=== PATIENT | female | born 1985 | race African-American/Black ===

== ENCOUNTER 2017-01-10 15:54 | Emergency (ER) | payer OTHER ==
[~2017-01-10] VITALS: Ht 177.8 cm; Wt 99.4 kg
[2017-01-10 16:47] VITALS: BP 112/67
[2017-01-10 17:45] LABS: APPEARANCE,URINE CLEAR (CLEAR); BILIRUBIN,URINE NEGATIVE (NEGATIVE); BLOOD, URINE NEGATIVE (NEGATIVE); COLOR,URINE YELLOW (YELLOW); LEUKOCYTE ESTERASE ,URINE TRACE (NEGATIVE); NITRITE, URINE NEGATIVE (NEGATIVE); PROTEIN,URINE NEGATIVE (NEGATIVE); UGLUCOSE NEGATIVE (NEGATIVE); UROBILINOGEN,URINE 0.2 EU/dL (0.2 - 1)
[2017-01-10 17:53] LABS: BACTERIA,URINE 1-9 (FEW) /HPF (None Seen); RBC,URINE 0-5 (RARE) /HPF (0-5)
[2017-01-10 17:54] LABS: SQUAMOUS EPITHELIAL CELL,UR 4-10 (MOD) /LPF (0-3 (FEW)); URINE AMORPHOUS URATE 1+ /HPF (None Seen)
[2017-01-10 18:21] LABS: EOSINOPHILS # (AUTO) 0.3 K/uL (0-0.4)
[2017-01-10 18:24] LABS: BASOPHILS # (AUTO) 0.2 K/uL (0.00-0.22); BASOPHILS % (AUTO) 3.3 % (0.0-2.0); EOSINOPHILS % (AUTO) 4.2 % (0.0-4.0); HEMOGLOBIN 12.5 g/dL (12.0-16.0); LYMPHOCYTES # (AUTO) 2.3 K/uL (2.5-16.5); LYMPHOCYTES % (AUTO) 35.5 % (20.5-51.1); MEAN CORPUSCULAR HEMOGLOBIN 28 pg (27-31); MEAN CORPUSCULAR HGB CONC 33 g/dL (33-37); MEAN CORPUSCULAR VOLUME 85 fL (80-94); MONOCYTES # (AUTO) 0.7 K/uL (0.8-1.0); MONOCYTES % (AUTO) 10.4 % (1.7-9.3); NEUTROPHILS # (AUTO) 3.1 K/uL (1.8-7.7); NEUTROPHILS % (AUTO) 46.6 % (42.2-75.2); PLATELET COUNT (AUTO) 204 K/uL (140-450); RED CELL DISTRIBUTION WIDTH 13.3 % (11.6-13.7); WHITE BLOOD COUNT (AUTO) 6.6 K/uL (4.8-10.8)
[2017-01-10 18:34] LABS: ANION GAP 10.8 (8-16); CALCIUM 8.6 mg/dL (8.5-10.1); CARBON DIOXIDE 27.9 mmol/L (21-32); CREATININE 1.1 mg/dL (0.6-1.3); POTASSIUM 3.7 mmol/L (3.5-5.1)
[2017-01-10 18:40] LABS: ALBUMIN 3.6 g/dL (3.4-5.0); TOTAL BILIRUBIN 0.4 mg/dL (0.0-1.0); TOTAL PROTEIN, SERUM 7.3 g/dL (6.4-8.2)
--- NOTE | 2017-01-10 19:10 | NUR ---
APATIENT PRESENTS TO ED WITH C/O LOWER ABD PAIN, NAUSEA, DIZZINESS AND HEADACHE. PT SKIN IS PINK/WARM/DRY; AAOX4 WITH EVEN AND STEADY GAIT; LUNGS CLEAR BL; HR EVEN AND REGULAR; PT DENIES ANY FEVER, CP, SOB, OR COUGH AT THIS TIME; PATIENT STATES PAIN OF 8/10 AT THIS TIME; VSS; PATIENT POSITIONED FOR COMFORT; HOB ELEVATED; BEDRAILS UP X2; BED DOWN. ER MD ME AWARE OF PT STATUS.
--- NOTE | 2017-01-10 19:46 | NUR ---
Dr. Mcconnell evaluating patient at bedside.
[2017-01-10] MEDS ORDERED: HYDROcodone/APAP 10/325 MG 1 TAB TAB PO STA (19:57)
[2017-01-10] MEDS ORDERED: MECLIZINE 25 MG TAB PO ONE (20:00)
[2017-01-10] MEDS ORDERED: ONDANSETRON 4 MG ODT PO ONE (20:00)
--- NOTE | 2017-01-10 20:24 | NUR ---
PT TO CT VIA WC IN STABLE CONDITION
--- NOTE | 2017-01-10 20:33 | NUR ---
PT RETURN FROM CT
[2017-01-10 21:50] VITALS: BP 101/74
--- NOTE | 2017-01-10 21:50 | NUR ---
Patient discharged with v/s stable. Written and verbal after care instructions given and explained. Patient alert, oriented and verbalized understanding of instructions. Ambulatory with steady gait. All questions addressed prior to discharge. ID band removed. Patient advised to follow up with PMD. Rx of MECLIZINE AND NORCO given. Patient educated on indication of medication including possible reaction and side effects. Opportunity to ask questions provided and answered.
== END 2017-01-10 21:50 | disposition home or self-care (01) ==
LOC: MED 15:54
DX: H81.10 Benign paroxysmal vertigo, unspecified ear (principal); R51 Headache; R10.30 Lower abdominal pain, unspecified; R11.0 Nausea
CPT/HCPCS: 36415; 70450; 80053; 81001; 81025; 85025; 93005; 99285; J8597; S0119

== ENCOUNTER 2017-03-10 17:59 | Emergency (ER) | payer OTHER ==
[~2017-03-10] VITALS: Ht 172.7 cm; Wt 99.5 kg
[2017-03-10 18:24] VITALS: BP 114/78
[2017-03-10 18:53] LABS: BASOPHILS # (AUTO) 0.2 K/uL (0.00-0.22); EOSINOPHILS # (AUTO) 0.2 K/uL (0-0.4); HEMATOCRIT 37.5 % (36-48); HEMOGLOBIN 12.4 g/dL (12.0-16.0); LYMPHOCYTES # (AUTO) 2.2 K/uL (2.5-16.5); MEAN CORPUSCULAR HEMOGLOBIN 28 pg (27-31); MEAN CORPUSCULAR HGB CONC 33 g/dL (33-37); MEAN CORPUSCULAR VOLUME 85 fL (80-94); MONOCYTES # (AUTO) 0.5 K/uL (0.8-1.0); NEUTROPHILS # (AUTO) 2.8 K/uL (1.8-7.7); PLATELET COUNT (AUTO) 184 K/uL (140-450); RED BLOOD CELL COUNT(AUTO) 4.41 MIL/uL (4.20-5.40); RED CELL DISTRIBUTION WIDTH 13.8 % (11.6-13.7); WHITE BLOOD COUNT (AUTO) 5.9 K/uL (4.8-10.8)
[2017-03-10 18:55] LABS: BILIRUBIN,URINE NEGATIVE (NEGATIVE); BLOOD, URINE TRACE-I (NEGATIVE); COLOR,URINE YELLOW (YELLOW); LEUKOCYTE ESTERASE ,URINE 1+ (NEGATIVE); NITRITE, URINE NEGATIVE (NEGATIVE); UGLUCOSE NEGATIVE (NEGATIVE)
[2017-03-10 18:56] LABS: APPEARANCE,URINE SLIGHTLY CLOUDY (CLEAR)
[2017-03-10 18:59] LABS: RBC,URINE 3-10 (FEW) /HPF (0-5); WBC,URINE 6-15 (FEW) /HPF (0-5)
[2017-03-10 19:10] LABS: ANION GAP 9.2 (8-16); CARBON DIOXIDE 29.9 mmol/L (21-32); CREATININE 1.1 mg/dL (0.6-1.3); POTASSIUM 4.1 mmol/L (3.5-5.1)
[2017-03-10 19:14] LABS: ALBUMIN 3.4 g/dL (3.4-5.0); TOTAL BILIRUBIN 0.2 mg/dL (0.0-1.0)
[2017-03-10 19:15] LABS: PROTHROMBIN TIME 10.4 secs (10.8-13.4)
[2017-03-10 20:26] VITALS: BP 122/76
== END 2017-03-10 20:26 | disposition home or self-care (01) ==
LOC: MED 17:59
DX: N39.0 Urinary tract infection, site not specified (principal)
CPT/HCPCS: 36415; 80053; 81001; 81025; 83690; 84703; 85025; 85610; 85730; 87086; 99284

== ENCOUNTER 2017-04-06 12:18 | Emergency (ER) | payer OTHER ==
[~2017-04-06] VITALS: Ht 172.7 cm; Wt 97.5 kg
[2017-04-06 12:28] VITALS: BP 127/78
--- NOTE | 2017-04-06 12:37 | NUR ---
Patient ambulated to bed 3 with family. RN evaluating patient at bedside.
--- NOTE | 2017-04-06 12:40 | NUR ---
31 F BIB FAMILY C/O 01/31 "BURNING/SHARP" MID UPPER ABDOMINAL PAIN SINCE LAST NIGHT WITH NAUSEA; DENIES V/D OR URINARY COMPLAINTS; SKIN IS PINK/WARM/DRY; AOX4 WITH EVEN AND STEADY GAIT; LUNGS CLEAR BL;RR ARE EVEN AND UNLABORED; VSS; PATIENT POSITIONED FOR COMFORT; HOB ELEVATED; BED DOWN. ER MD MADE AWARE OF PT STATUS. WILL CONTINUE TO MONITOR.
[2017-04-06] MEDS ORDERED: DICYCLOMINE HCL LIQUID 20 MG, ALUMINUM HYD/MAG/SIMETHICONE 30 ML, LIDOCAINE VISCOUS 2% ... PO ONE ×3 (12:45)
[2017-04-06 12:57] LABS: BASOPHILS # (AUTO) 0.2 K/uL (0.00-0.22); BASOPHILS % (AUTO) 1.4 % (0.0-2.0); EOSINOPHILS # (AUTO) 0.1 K/uL (0-0.4); EOSINOPHILS % (AUTO) 0.6 % (0.0-4.0); HEMATOCRIT 39.1 % (36-48); HEMOGLOBIN 12.5 g/dL (12.0-16.0); LYMPHOCYTES # (AUTO) 1.3 K/uL (2.5-16.5); LYMPHOCYTES % (AUTO) 8.6 % (20.5-51.1); MEAN CORPUSCULAR HEMOGLOBIN 27 pg (27-31); MEAN CORPUSCULAR HGB CONC 32 g/dL (33-37); MEAN CORPUSCULAR VOLUME 85 fL (80-94); MONOCYTES % (AUTO) 7.1 % (1.7-9.3); NEUTROPHILS # (AUTO) 11.9 K/uL (1.8-7.7); NEUTROPHILS % (AUTO) 82.3 % (42.2-75.2); PLATELET COUNT (AUTO) 247 K/uL (140-450); RED BLOOD CELL COUNT(AUTO) 4.59 MIL/uL (4.20-5.40); RED CELL DISTRIBUTION WIDTH 13.6 % (11.6-13.7); WHITE BLOOD COUNT (AUTO) 14.5 K/uL (4.8-10.8)
[2017-04-06 13:06] LABS: ANION GAP 10.9 (8-16); CARBON DIOXIDE 27.8 mmol/L (21-32); POTASSIUM 3.7 mmol/L (3.5-5.1)
[2017-04-06 13:12] LABS: ALBUMIN 3.6 g/dL (3.4-5.0); TOTAL BILIRUBIN 0.2 mg/dL (0.0-1.0)
[2017-04-06] MEDS ORDERED: HYDROcodone/APAP 5/325 MG 1 TAB TAB PO ONE (13:35)
[2017-04-06] MEDS ORDERED: KETOROLAC 30 MG/ML VIAL IM ONE (13:35)
--- NOTE | 2017-04-06 14:17 | NUR ---
Patient taken to CT scan via gurney by tye, accompanied by family.
[2017-04-06 15:25] VITALS: BP 106/59
--- NOTE | 2017-04-06 15:25 | NUR ---
Patient discharged with v/s stable. Written and verbal after care instructions given and explained. Patient alert, oriented and verbalized understanding of instructions. Ambulatory with steady gait. All questions addressed prior to discharge. ID band removed. Patient advised to follow up with PMD. Rx of Magnesium Citrate and Bentyl given. Patient educated on indication of medication including possible reaction and side effects. Opportunity to ask questions provided and answered.
== END 2017-04-06 15:25 | disposition home or self-care (01) ==
LOC: MED 12:18
DX: K59.00 Constipation, unspecified (principal); R03.0 Elevated blood-pressure reading, without diagnosis of hypertension; J45.909 Unspecified asthma, uncomplicated
CPT/HCPCS: 36415; 74176; 80053; 81002; 81025; 83690; 85025; 96372; 99285; J1885

== ENCOUNTER 2017-05-19 21:45 | Emergency (ER) | payer OTHER ==
[~2017-05-19] VITALS: Ht 172.7 cm; Wt 101.6 kg
[2017-05-19 22:00] VITALS: BP 111/76
--- NOTE | 2017-05-19 22:04 | NUR ---
AMBULATED TO ER BED 8
[2017-05-19] MEDS: ACETAMINOPHEN EXTRA STRENGTH 500 MG TAB PO ONE (22:48)
--- NOTE | 2017-05-19 22:50 | NUR ---
31Y/F PRESENTS TO ER C/O HEADACHE. NKA, PMH ANEMIA, ASTHMA, IRREGULAR HEARTBEAT, PALPITATIONS, MIGRAINES. PT IS 8 WEEKS , [id number]. PT STATES SHE HAS BEEN HAVING HEADACHES EVERY OTHER DAY SINCE SHE HAS BEE AND TAKES TYLNOL AT HOME WITH RELIEF SOMETIMES, PT STATES SHE DOES NOT WANT TO TAKE "TYLENOL EVERYDAY". HEADACHE IS 8/10, RADIATING TO NECK, PRESSURE, INTERMITTENT PAIN, PT ALSO HAS LOWER BACK PAIN.
[2017-05-19 23:30] LABS: APPEARANCE,URINE CLEAR (CLEAR); BILIRUBIN,URINE NEGATIVE (NEGATIVE); BLOOD, URINE TRACE-L (NEGATIVE); COLOR,URINE YELLOW (YELLOW); LEUKOCYTE ESTERASE ,URINE NEGATIVE (NEGATIVE); NITRITE, URINE NEGATIVE (NEGATIVE); PH,URINE 5.5 (5.0-9.0); UGLUCOSE NEGATIVE (NEGATIVE)
[2017-05-19] MEDS: SUMAtriptan 25 MG TAB PO ONE (23:36)
[2017-05-19 23:41] VITALS: BP 111/76
--- NOTE | 2017-05-19 23:41 | NUR ---
Patient discharged with v/s stable. Written and verbal after care instructions given and explained. Patient verbalized understanding. Ambulatory with steady gait. All questions addressed prior to discharge. Advised to follow up with PMD/OBGYN.
[2017-05-19 23:45] LABS: RBC,URINE 3-10 (FEW) /HPF (0-5); WBC,URINE 0-5 (RARE) /HPF (0-5)
== END 2017-05-19 23:41 | disposition home or self-care (01) ==
LOC: MED 21:45
DX: O99.351 Diseases of the nervous system complicating pregnancy, first trimester (principal); Z3A.08 8 weeks gestation of pregnancy; J45.909 Unspecified asthma, uncomplicated
CPT/HCPCS: 81001; 81025; 99283

== ENCOUNTER 2017-07-26 08:52 | Emergency (ER) | payer OTHER ==
[~2017-07-26] VITALS: Ht 172.7 cm; Wt 103.9 kg
[2017-07-26 08:56] VITALS: BP 121/62
[2017-07-26] MEDS ORDERED: PRENATAL VITAMINS TABLET (09:01)
[2017-07-26] MEDS ORDERED: DEXT 5% / LACT RING 500 ML IV ONE (09:10)
--- NOTE | 2017-07-26 09:24 | NUR ---
31/F BIB SELF C/O RLQ PAIN CONSISTENT X4DAYS, ON/OFF X1.5WK. STS 18WKS . DENIES N/V/FEVER. DIARRHEA X3DAYS. HX: A6 L1. ASTHMA, UNBILICAL HERNIA, IRREGULAR HR, LOW PULSE. AAAOx4, VSS. PAIN 6/10 RLQ. ERMD NOTIFIED OF PATIENT STATUS.
[2017-07-26 09:53] LABS: HEMATOCRIT 34.3 % (36-48); HEMOGLOBIN 11.5 g/dL (12.0-16.0); MEAN CORPUSCULAR HEMOGLOBIN 28 pg (27-31); MEAN CORPUSCULAR HGB CONC 33 g/dL (33-37); MEAN CORPUSCULAR VOLUME 84 fL (80-94); PLATELET COUNT (AUTO) 178 K/uL (140-450); RED BLOOD CELL COUNT(AUTO) 4.11 MIL/uL (4.20-5.40); RED CELL DISTRIBUTION WIDTH 13.2 % (11.6-13.7); WHITE BLOOD COUNT (AUTO) 8.6 K/uL (4.8-10.8)
--- NOTE | 2017-07-26 10:09 | NUR ---
Ultrasound at bedside.
[2017-07-26 10:18] LABS: LYMPHOCYTES % (MANUAL) 25 % (20-46); MONOCYTES % (MANUAL) 3 % (5-12)
[2017-07-26 10:23] LABS: APPEARANCE,URINE CLEAR (CLEAR); BILIRUBIN,URINE NEGATIVE (NEGATIVE); BLOOD, URINE TRACE-L (NEGATIVE); COLOR,URINE YELLOW (YELLOW); LEUKOCYTE ESTERASE ,URINE NEGATIVE (NEGATIVE); NITRITE, URINE NEGATIVE (NEGATIVE); UGLUCOSE NEGATIVE (NEGATIVE)
--- NOTE | 2017-07-26 10:38 | NUR ---
PT RESTING. VSS; PATIENT POSITIONED FOR COMFORT; HOB ELEVATED; BEDRAILS UP X2; BED DOWN. ER MD MADE AWARE OF PT STATUS.
[2017-07-26 10:54] LABS: RBC,URINE 0-5 (RARE) /HPF (0-5); WBC,URINE 0-5 (RARE) /HPF (0-5)
--- NOTE | 2017-07-26 11:33 | NUR ---
PT RESTING. VSS; PATIENT POSITIONED FOR COMFORT; HOB ELEVATED; BEDRAILS UP X2; BED DOWN. ER MD MADE AWARE OF PT STATUS.
--- NOTE | 2017-07-26 12:32 | NUR ---
PT RESTING. VSS; PATIENT POSITIONED FOR COMFORT; HOB ELEVATED; BEDRAILS UP X2; BED DOWN. ER MD MADE AWARE OF PT STATUS.
--- NOTE | 2017-07-26 13:47 | NUR ---
PT RESTING. VSS; PATIENT POSITIONED FOR COMFORT; HOB ELEVATED; BEDRAILS UP X2; BED DOWN. ER MD MADE AWARE OF PT STATUS.
--- NOTE | 2017-07-26 14:45 | NUR ---
PT RESTING. VSS; PATIENT POSITIONED FOR COMFORT; HOB ELEVATED; BEDRAILS UP X2; BED DOWN. ER MD MADE AWARE OF PT STATUS.
[2017-07-26 14:58] VITALS: BP 107/72
--- NOTE | 2017-07-26 14:58 | NUR ---
Patient discharged with v/s stable. Written and verbal after care instructions given and explained. Patient verbalized understanding. Ambulatory with steady gait. All questions addressed prior to discharge. Advised to follow up with PMD.
== END 2017-07-26 14:58 | disposition home or self-care (01) ==
LOC: MED 08:52
DX: O26.891 Other specified pregnancy related conditions, first trimester (principal); R10.84 Generalized abdominal pain; J45.909 Unspecified asthma, uncomplicated; Z3A.18 18 weeks gestation of pregnancy; Z79.899 Other long term (current) drug therapy
CPT/HCPCS: 36415; 76817; 81001; 81025; 84702; 85025; 86900; 86901; 96360; 96361; 99285; Q0092

== ENCOUNTER 2018-04-06 10:11 | Emergency (ER) | payer OTHER ==
[~2018-04-06] VITALS: Ht 172.7 cm; Wt 94.3 kg
[~2018-04-06 10:11] MED LIST: PRENATAL VITAMINS TABLET
[2018-04-06 10:15] VITALS: BP 122/82
--- NOTE | 2018-04-06 10:24 | NUR ---
PT AMBULATES TO BED 8
[2018-04-06] MEDS ORDERED: KETOROLAC 60 MG/2 ML VIAL IM ONE (10:35)
--- NOTE | 2018-04-06 10:39 | NUR ---
PATIENT PRESENTS TO ED WITH C/O PAIN TO RIGHT RADIAL WRIST 10/10 WITH MOVEMENT X 3 DAYS NO DISCOLORATION NO SWELLING NOTED---TENDER TO TOUCH +2 RADIAL PULSE <3 SEC CAP REFILL FULL ROM .DENIES N/V/D; SKIN IS PINK/WARM/DRY; AAOX4 WITH EVEN AND STEADY GAIT; LUNGS CLEAR BL; HR EVEN AND REGULAR; PT DENIES ANY FEVER, CP, SOB, OR COUGH AT THIS TIME; PATIENT STATES PAIN OF 10/10 AT THIS TIME; VSS; PATIENT POSITIONED FOR COMFORT; HOB ELEVATED; BEDRAILS UP X2; BED DOWN. ER MD MADE AWARE OF PT STATUS.
--- NOTE | 2018-04-06 10:43 | NUR ---
MEDICATED FOR PAIN
[2018-04-06 11:10] VITALS: BP 122/82
== END 2018-04-06 11:10 | disposition home or self-care (01) ==
LOC: MED 10:11
DX: M25.531 Pain in right wrist (principal); J45.909 Unspecified asthma, uncomplicated
CPT/HCPCS: 29125; 96372; 99283; J1885

== ENCOUNTER 2021-08-11 07:09 | Day surgery (SDC) | payer OTHER, SELFPAY ==
[~2021-08-11] VITALS: Ht 172.7 cm; Wt 105.2 kg
[2021-08-11] MEDS ORDERED: fentaNYL citrate 0.05 MG/ML VIAL ONE (09:14)
[2021-08-11] MEDS ORDERED: LIDOCAINE 2% 100 MG/5 ML UJET TP ONE (09:15)
[2021-08-11] MEDS ORDERED: MIDAZOLAM 5 MG/5 ML VIAL ONE (09:22)
[2021-08-11] MEDS ORDERED: fentaNYL citrate 0.05 MG/ML VIAL IVP SCH (09:58)
[2021-08-11] MEDS ORDERED: MIDAZOLAM 2 MG/2 ML VIAL IVP SCH (09:58)
[2021-08-11] MEDS ORDERED: ACETAMINOPHEN EXTRA STRENGTH 500 MG TAB PO PRN (11:00)
[2021-08-11] MEDS ORDERED: ACETAMINOPHEN EXTRA STRENGTH 500 MG TAB ONE (11:00)
[2021-08-11] MEDS ORDERED: ACETAMINOPHEN EXTRA STRENGTH 500 MG TAB PO ONE (11:00)
== END 2021-08-11 11:05 | disposition home or self-care (01) ==
LOC: MDS 07:09 → MMU 07:10 → MDS 11:05
PROVIDERS: ATTEND Internal Medicine Gastroenterology
DX: K62.5 Hemorrhage of anus and rectum (principal); J45.909 Unspecified asthma, uncomplicated; K64.9 Unspecified hemorrhoids; E66.9 Obesity, unspecified; Z79.899 Other long term (current) drug therapy; Z20.822 Contact with and (suspected) exposure to COVID-19
CPT/HCPCS: 45378; 81025; 87426; J2250; J3010

== ENCOUNTER 2021-10-08 21:40 | Emergency (ER) | payer OTHER ==
[~2021-10-08] VITALS: Ht 172.7 cm; Wt 104.3 kg
[2021-10-08 21:48] VITALS: BP 130/80
--- NOTE | 2021-10-08 21:55 | NUR ---
PATIENT TO BED 6 W/C ASSISTED
--- NOTE | 2021-10-08 22:18 | NUR ---
ASSISTED PATIENT TO BATHROOM VIA WHEELCHAIR
--- NOTE | 2021-10-08 22:29 | NUR ---
Dr. Moreno examining patient.
[2021-10-08] MEDS ORDERED: KETOROLAC 60 MG/2 ML VIAL IM ONE (22:35)
--- NOTE | 2021-10-08 22:39 | NUR ---
X-Ray at bedside.
--- NOTE | 2021-10-08 23:35 | NUR ---
JANELLE EMT AT BEDSIDE TO INSTRUCTING PT ON USE OF CRUTCHES.
[2021-10-09] MEDS ORDERED: NAPR-54 PO (00:03)
--- NOTE | 2021-10-09 00:10 | NUR ---
AWAITING XRAY RESULTS. AT BEDSIDE.
[2021-10-09 00:12] VITALS: BP 130/80
--- NOTE | 2021-10-09 00:15 | NUR ---
Chart checked and completed. The patient's care was reviewed and supervised by Armida Lombardi RN.
== END 2021-10-09 00:12 | disposition home or self-care (01) ==
LOC: MED 21:40
DX: S93.601A Unspecified sprain of right foot, initial encounter (principal); J45.909 Unspecified asthma, uncomplicated; Z79.899 Other long term (current) drug therapy; W19.XXXA Unspecified fall, initial encounter; Y93.89 Activity, other specified; Y92.89 Other specified places as the place of occurrence of the external cause; Y99.8 Other external cause status
CPT/HCPCS: 73610; 73630; 96372; 99284; J1885

== ENCOUNTER 2022-12-21 06:40 | Emergency (ER) | payer OTHER ==
[~2022-12-21] VITALS: Ht 172.7 cm; Wt 109.8 kg
[2022-12-21 06:40] VITALS: BP 130/90; PULSE 90; RESP 16; TEMP 98.2; O2SAT 98
[~2022-12-21 06:40] MED LIST changes: +NAPR-54 PO
--- NOTE | 2022-12-21 06:43 | NUR ---
TO LOBBY A/W BED AMBULATORY
[2022-12-21] MEDS ORDERED: ONDA-188 PO (08:25)
[2022-12-21] MEDS ORDERED: CLIN300C2 PO (08:25)
[2022-12-21] MEDS ORDERED: LIDOCAINE 1% 500 MG/ 50 ML VIAL INJ ONE (08:25)
[2022-12-21] MEDS ORDERED: IBUP-2213 PO (08:25)
[2022-12-21] MEDS ORDERED: HYDR-5191 PO (08:25)
[2022-12-21] MEDS ORDERED: LIDOCAINE MPF 1% 5 ML ONE (08:37)
--- NOTE | 2022-12-21 08:48 | NUR ---
AT BEDSIDE, PERFORMING I&D OF GUM SWELLING.
[2022-12-21 08:52] VITALS: BP 122/56; PULSE 76; RESP 18; TEMP 98.1; O2SAT 99
--- NOTE | 2022-12-21 08:52 | NUR ---
Patient discharged with v/s stable. Written and verbal after care instructions given and explained. Patient alert, oriented and verbalized understanding of instructions. Ambulatory with steady gait. All questions addressed prior to discharge. ID band removed. Patient advised to follow up with PMD. Rx of CLINDAMYCIN, ZOFRAN, NORCO given. Patient educated on indication of medication including possible reaction and side effects. Opportunity to ask questions provided and answered.
== END 2022-12-21 08:52 | disposition home or self-care (01) ==
LOC: MED 06:40
DX: K04.7 Periapical abscess without sinus (principal); J45.909 Unspecified asthma, uncomplicated; Z79.899 Other long term (current) drug therapy
CPT/HCPCS: 41800; 99284; J2001; 99283

== ENCOUNTER 2024-01-16 15:37 | Emergency (ER) | payer OTHER ==
[~2024-01-16] VITALS: Ht 172.7 cm; Wt 111.4 kg
[~2024-01-16 15:37] MED LIST changes: +CLIN300C2 PO; +HYDR-5071 PO; +IBUP-2213 PO; +NAPR-337 PO; -NAPR-54 PO; +ONDA-188 PO
[2024-01-16 15:39] VITALS: BP 126/86; PULSE 88; RESP 20; TEMP 97.7; O2SAT 100
[2024-01-16 16:40] LABS: FLU A ANTIGEN negative (NEGATIVE); FLU B ANTIGEN negative (NEGATIVE)
[2024-01-16] MEDS ORDERED: HYDR-5071 PO (17:24)
[2024-01-16] MEDS ORDERED: ALBU0.0912 IH (17:24)
[2024-01-16] MEDS ORDERED: BENZ200C4 PO (17:24)
[2024-01-16 17:34] VITALS: BP 126/86; PULSE 88; RESP 20; TEMP 97.7; O2SAT 100
== END 2024-01-16 17:34 | disposition home or self-care (01) ==
LOC: MED 15:37
DX: U07.1 COVID-19 (principal); G43.909 Migraine, unspecified, not intractable, without status migrainosus; J45.909 Unspecified asthma, uncomplicated; Z79.1 Long term (current) use of non-steroidal anti-inflammatories (NSAID); Z79.2 Long term (current) use of antibiotics; Z79.899 Other long term (current) drug therapy
CPT/HCPCS: 82948; 99283